=== PATIENT | female | born 1980 | race Caucasian/White ===

== ENCOUNTER → 2020-01-20 14:59 | Outpatient (CLI) | payer OTHER, SELFPAY ==
[2020-01-21 20:38] LABS: COVID19 Sendout Not Detected (Not Detect)
== END ==
PROVIDERS: Visit Provider Nurse Practitioner
DX: Z11.59 Encounter for screening for other viral diseases (principal)
CPT/HCPCS: 87635

== ENCOUNTER → 2020-03-10 08:50 | Outpatient (CLI) | payer OTHER, SELFPAY ==
[2020-03-11 12:47] LABS: COVID19 Sendout Not Detected (Not Detect)
== END ==
PROVIDERS: Visit Provider Physician Assistant
DX: Z11.59 Encounter for screening for other viral diseases (principal)
CPT/HCPCS: 87635